=== PATIENT | male | born 1990 ===

== ENCOUNTER 2017-11-27 11:06 | Emergency (ER) | payer MEDICAID, OTHER ==
[2017-11-27 11:06] VITALS: BMI 39.1
[2017-11-27 11:33] VITALS: BP 104/68; PULSE 84; RESP 16; TEMP 97.5; O2SAT 96
--- NOTE | 2017-11-27 11:49 | ED PDOC ---
Arrival/HPI - General Chief Complaint: GI Problem Time Seen by Provider: 11/27/17 11:17 - History of Present Illness Narrative History of Present Illness (Text): 26 y/o M c PMHx seizure disorder x 2 years and not currently on medication, migraine headaches p/w L hand finger numbness after presumed seizure overnight. Patient awoke with nausea, vomiting once, NBNB, and has headache, which he states is typical of his [id number]. He notes he woke up in his urine. Denies fever, chills, chest pain, dyspnea, abd pain, diarrhea, dysuria. Past Medical History - Infectious Disease Hx of Infectious Diseases: None - Tetanus Immunization Tetanus Immunization: Unknown - Past Medical History Past Medical History: No Previous - Cardiac Hx Cardiac Disorders: No Hx Hypertension: No - Pulmonary Hx Respiratory Disorders: No Hx Tuberculosis: No - Neurological Hx Neurological Disorder: Yes Hx Alzheimer's Disease: No HX Cerebrovascular Accident: No Hx Dementia: No Hx Dizziness: No Hx Meningitis: No Hx Migraine: No Hx Multiple Sclerosis: No Hx Paralysis: No Hx Parkinson's Disease: No Hx Seizures: Yes Hx Syncope: No Hx Transient Ischemic Attacks (TIA): No Hx Vertigo: No - HEENT Hx HEENT Disorder: No - Renal Hx Renal Disorder: No - Endocrine/Metabolic Hx Endocrine Disorders: No - Hematological/Oncological Hx Blood Disorders: No Hx Cancer: No - Integumentary Hx Dermatological Disorder: No - Musculoskeletal/Rheumatological Hx Musculoskeletal Disorders: No - Gastrointestinal Hx Gastrointestinal Disorders: No - Genitourinary/Gynecological Hx Genitourinary Disorders: No Hx Sexually Transmitted Diseases: No - Psychiatric Hx Psychophysiologic Disorder: No Hx Depression: Yes Hx Substance Use: Yes - Past Surgical History Past Surgical History: No Previous - Anesthesia Hx Anesthesia: No Hx Anesthesia Reactions: No Hx Malignant Hyperthermia: No - Suicidal Assessment Feels Threatened In Home Enviroment: No Family/Social History Family/Social History: No Known Family HX Smoking Status: Never Smoked Hx Alcohol Use: No Hx Substance Use: Yes Substance used: CANNABIS Hx Substance Use Treatment: No Allergies/Home Meds Allergies/Adverse Reactions: Allergies No Known Allergies Allergy (Verified 12/18/16 10:56) Review of Systems - Physician Review All systems were reviewed & negative as marked: Yes - Review of Systems Constitutional: absent: Fevers Cardiovascular: absent: Chest Pain Physical Exam - Physical Exam Narrative Physical Exam (Text): Gen: NAD Head: NC/AT Eyes: PERRL, EOMI ENT: MMM. L sided tongue bite, no active bleeding Neck: Supple, no midline tenderness. Chest: No tenderness CV: Regular rate Resp: CTA b/l Abd: Soft, NT, ND Skin: No rash Extremities: No swelling. Neuro: Alert, CN II to XII intact. Motor mild weakness of ulnar distribution. Unable to fully extend 2nd and 3rd digit at MCP. Sensation to light touch mildly decreased subjectively in distal finger tips of 2nd through 5th digits. Vital Signs Temp Pulse Resp BP Pulse Ox 11/27/17 11:22 97.5 F L 84 16 104/68 96 Medical Decision Making ED Course and Treatment: Plan: Neurological findings consistent with seizure and also with migraine headaches. Offer seizure medication, f/u neurology. EKG shows NSR at [address]/T wave changes. Interpreted by me. Report Date : 11/27/2017 13:59:09 PROCEDURE: CT HEAD WITHOUT CONTRAST. Dictator : Olman Boogie MD FINDINGS: HEMORRHAGE: No intracranial hemorrhage. BRAIN: No mass effect or edema. No atrophy or chronic microvascular ischemic changes. VENTRICLES: Unremarkable. No hydrocephalus. CALVARIUM: Unremarkable. PARANASAL SINUSES: Unremarkable as visualized. No significant inflammatory changes. MASTOID AIR CELLS: Unremarkable as visualized. No inflammatory changes. OTHER FINDINGS: None. IMPRESSION: Negative study Report Date : 11/27/2017 14:24:14 PROCEDURE: Chest xray Dictator : Wayne Treviño MD IMPRESSION: No active disease. 11/27/17 14:42 Patient was in ED for over 3 hours. Hand numbness/weakness improved. Will discharge home on Depakote, which patient states he was on previously 500mg BID. Instructed to f/u with neurology, return to ED for any different headache, weakness, pain, dyspnea, or any other problem. - Lab Interpretations Lab Results: 11/27/17 12:50 11/27/17 12:50 Lab Results 11/27/17 12:50: Sodium 141, Potassium 4.8, Chloride 104, Carbon Dioxide 26, Anion Gap 16, BUN 12, Creatinine 0.8, Est GFR ( Amer) > 60, Est GFR (Non- Af Amer) > 60, Random Glucose 106, Calcium 10.4, Total Bilirubin 0.3, AST 25, ALT 32, Alkaline Phosphatase 92, Total Protein 7.8, Albumin 4.6, Globulin 3.2, Albumin/Globulin Ratio 1.4 11/27/17 12:50: WBC 13.9 H D, RBC 5.11, Hgb 15.8, Hct 44.3, MCV 86.7, MCH 30.9, MCHC 35.7, RDW 12.3, Plt Count 292, MPV 10.8, Gran % 88.4 H, Lymph % (Auto) 8.7 L, [place] % (Auto) 2.5, Eos % (Auto) 0.2 L, Baso % (Auto) 0.2, Gran # 12.25 H, Lymph # 1.2, [place] # 0.4, Eos # 0.0, Baso # 0.03 - RAD Interpretation Radiology Orders: 11/27/17 12:17 HEAD W/O CONTRAST [CT] Stat CHEST PORTABLE [RAD] Stat - Medication Orders Current Medication Orders: Discontinued Medications Acetaminophen (Tylenol 325mg Tab) 975 mg PO STAT STA Stop: 11/27/17 12:19 Last Admin: 11/27/17 12:53 Dose: 975 mg MAR Pain/Vitals Document 11/27/17 12:53 HI (Rec: 11/27/17 12:53 [facility] Pain Reassessment Is This A Pain ReAssessment? No Diphenhydramine HCl (Benadryl) 25 mg IVP STAT STA Stop: 11/27/17 12:19 Last Admin: 11/27/17 12:52 Dose: 25 mg IVP Administration Document 11/27/17 12:52 HI (Rec: 11/27/17 12:52 [facility] Charges for Administration # of IVP Administrations 1 Sodium Chloride (Sodium Chloride 0.9%) 1,000 mls @ 999 mls/hr IV .Q1H1M STA Stop: 11/27/17 13:18 Last Admin: 11/27/17 12:51 Dose: 999 mls/hr eMAR Start Stop Document 11/27/17 12:51 HI (Rec: 11/27/17 12:52 [facility]) Intravenous Solution Start Date 11/27/17 Start Time 12:51 Ketorolac Tromethamine (Toradol) 30 mg IVP STAT STA Stop: 11/27/17 12:19 Last Admin: 11/27/17 12:52 Dose: 30 mg MAR Pain Assessment Document 11/27/17 12:52 HI (Rec: 11/27/17 12:53 [email or web address] Pain Reassessment Is this a pain reassessment? No IVP Administration Document 11/27/17 12:52 HI (Rec: 11/27/17 12:53 [email or web address] Charges for Administration # of IVP Administrations 1 Metoclopramide HCl (Reglan) 10 mg IVP STAT STA Stop: 11/27/17 12:19 Last Admin: 11/27/17 12:52 Dose: 10 mg IVP Administration Document 11/27/17 12:52 HI (Rec: 11/27/17 12:52 [facility] Charges for Administration # of IVP Administrations 1 Disposition/Present on Arrival - Present on Arrival Any Indicators Present on Arrival: No History of DVT/PE: No History of Uncontrolled Diabetes: No Urinary Catheter: No History of Decub. Ulcer: No History Surgical Site Infection Following: None - Disposition Have Diagnosis and Disposition been Completed?: Yes Diagnosis: Seizure, Headache Disposition: HOME/ ROUTINE Disposition Time: 14:29 Patient Plan: Discharge Condition: STABLE Discharge Instructions (ExitCare): Epilepsy (ED) Prescriptions: Divalproex [Depakote ER] 250 mg PO BID #14 ter Referrals: Kolton Peres MD [Staff Provider] - Follow up with primary Forms: [employer] (French)
[2017-11-27] MEDS ORDERED: DiphenhydrAMINE 50 mg/ml Inj IVP STA (12:18)
[2017-11-27] MEDS ORDERED: Sodium Chloride 0.9% 1,000 ML IV STA (12:18)
[2017-11-27 13:05] LABS: BASO # 0.03 K/mm3 (0.0-2.0); BASO % 0.2 % (0.0-3.0); EOS % 0.2 % (1.5-5.0); GRAN # 12.25 (1.4-6.5); GRAN % 88.4 % (50.0-68.0); HEMOGLOBIN 15.8 g/dL (14.0-18.0); LYMPH # 1.2 (1.2-3.4); LYMPH % 8.7 % (22.0-35.0); MEAN CELL VOLUME 86.7 fl (80.0-105.0); MEAN CORPUSCULAR HEMOGLOBIN 30.9 pg (25.0-35.0); MEAN CORPUSCULAR HGB CONC 35.7 g/dl (31.0-37.0); MEAN PLATELET VOLUME 10.8 fl (7.0-11.0); MONO # 0.4 (0.1-0.6); MONO % 2.5 % (1.0-6.0); RBC 5.11 10^6/uL (3.5-6.1); RED CELL DISTRIBUTION WIDTH 12.3 % (11.5-14.5); WHITE BLOOD COUNT 13.9 10^3/ul (4.5-11.0)
[2017-11-27 13:14] LABS: ALB/GLOB RATIO 1.4 (1.1-1.8); ALBUMIN 4.6 g/dL (3.0-4.8); ALT/SGPT 32 U/L (7-56); AST/SGOT 25 U/L (17-59); BLOOD UREA NITROGEN 12 mg/dL (7-21); CALCIUM 10.4 mg/dL (8.4-10.5); GFR AFRICAN-AMERICAN > 60; GFR NON-AFRICAN AMERICAN > 60
--- NOTE | 2017-11-27 14:00 | CT ---
PROCEDURE: CT HEAD WITHOUT CONTRAST. HISTORY: headache, hand weakness/numbness COMPARISON: 06/17/2015 TECHNIQUE: Axial computed tomography images were obtained through the head/brain without intravenous contrast. Radiation dose: Total exam DLP = 873 mGy-cm. This CT exam was performed using one or more of the following dose reduction techniques: Automated exposure control, adjustment of the mA and/or kV according to patient size, and/or use of iterative reconstruction technique. FINDINGS: HEMORRHAGE: No intracranial hemorrhage. BRAIN: No mass effect or edema. No atrophy or chronic microvascular ischemic changes. VENTRICLES: Unremarkable. No hydrocephalus. CALVARIUM: Unremarkable. PARANASAL SINUSES: Unremarkable as visualized. No significant inflammatory changes. MASTOID AIR CELLS: Unremarkable as visualized. No inflammatory changes. OTHER FINDINGS: None. IMPRESSION: Negative study
--- NOTE | 2017-11-27 14:26 | RAD ---
HISTORY: Hand numbness and weakness. COMPARISON: No prior. FINDINGS: LUNGS: No active pulmonary disease. PLEURA: No significant pleural effusion identified, no pneumothorax apparent. CARDIOVASCULAR: No radiographic findings to suggest acute or significant cardiovascular disease. OSSEOUS STRUCTURES: No significant abnormalities. VISUALIZED UPPER ABDOMEN: Normal. OTHER FINDINGS: None. IMPRESSION: No active disease.
[2017-11-27] MEDS ORDERED: Divalproex 500 mg DR(BID formulation) PO STA (14:42)
--- NOTE | 2017-11-28 11:18 | CARD ---
APPROVED REPORT EKG Measurement Heart [id number] ND 130P33 [id number] <Conclusion> Normal sinus rhythm Minimal voltage criteria for LVH, may be normal variant No change
== END 2017-11-27 14:52 | disposition home or self-care (01) ==
LOC: ED 11:06
DX: G40.909 Epilepsy, unspecified, not intractable, without status epilepticus (principal); R51 Headache
CPT/HCPCS: 70450; 71045; 80053; 85025; 93005; 96374; 96375; 99283; J1200; J1885; J2765; J7040

== ENCOUNTER 2018-02-18 06:41 | Observation (INO) | payer BC, MEDICAID ==
[2018-02-18 06:45] VITALS: BMI 39.2
[2018-02-18] MEDS ORDERED: Sodium Chloride 0.9% 500 ML IV STA (07:08)
[2018-02-18] MEDS ORDERED: levETIRAcetam 1,000 MG in Sodium Chloride 0.9% 100 ML IV ONE (07:10)
--- NOTE | 2018-02-18 07:38 | ED PDOC ---
Arrival/HPI - General Historian: Family, EMS EM Caveat: Acuity of Condition, Altered Mental Status - History of Present Illness Time/Duration: 1 hour Symptom Onset: Sudden Symptom Course: Intermittent Context: Home <Maris López - Last Filed: 02/18/18 13:11> <Sammie Cui - Last Filed: 02/20/18 21:19> - General Chief Complaint: Seizure Time Seen by Provider: 02/18/18 07:07 - History of Present Illness Narrative History of Present Illness (Text): 02/18/18 07:29 27 yo M with PMH of epilepsy for 2 years presents by EMS called by his brother for witnessed seizure. Patient was sleeping at home when he started to have whole body shaking witnessed by his brother. Per the brother, shaking lasted 40 seconds, then resolved spontaneously. Patient was tired and confused, breathing heavy for 30 minutes, then he started to shake again, at which point the brother called EMS. He urinated on himself during the second episode. Shaking lasted approximately 1 minute, then resolved spontaneously. He was tired and confused again for a few minutes, then woke up and was behaving normally. By the time EMS arrived, he became agitated, confused, and combative again. Patient has not taken his antiseizure medications for 2 months, due to lack of insurance. Upon arrival in the ER, patient was very agitated, confused, and combative. He was restrained for his safety, and for the safety of the ED personnel, IV access was obtained, and he was given IV ativan. Currently, patient is awake and alert, speaking normally, oriented to person, place, and time. He is confused about prior events. He is complaining of a headache. He denies any chest pain, fever, chills. He and family deny any recent illness, substance abuse, alcohol use, or otherwise abnormal behavior. (Maris López) Past Medical History - Provider Review Nursing Documentation Reviewed: Yes - Travel History Have you recently traveled outside [place] w/in the past 3 mons?: No - Infectious Disease Hx of Infectious Diseases: None - Tetanus Immunization Tetanus Immunization: Unknown - Cardiac Hx Cardiac Disorders: No Hx Hypertension: No - Pulmonary Hx Respiratory Disorders: No Hx Tuberculosis: No - Neurological Hx Neurological Disorder: Yes Hx Alzheimer's Disease: No HX Cerebrovascular Accident: No Hx Dementia: No Hx Dizziness: No Hx Meningitis: No Hx Migraine: No Hx Multiple Sclerosis: No Hx Paralysis: No Hx Parkinson's Disease: No Hx Seizures: Yes Hx Syncope: No Hx Transient Ischemic Attacks (TIA): No Hx Vertigo: No - HEENT Hx HEENT Disorder: No - Renal Hx Renal Disorder: No - Endocrine/Metabolic Hx Endocrine Disorders: No - Hematological/Oncological Hx Blood Disorders: No Hx Cancer: No - Integumentary Hx Dermatological Disorder: No - Musculoskeletal/Rheumatological Hx Musculoskeletal Disorders: No - Gastrointestinal Hx Gastrointestinal Disorders: No - Genitourinary/Gynecological Hx Genitourinary Disorders: No Hx Sexually Transmitted Diseases: No - Psychiatric Hx Psychophysiologic Disorder: No Hx Depression: Yes Hx Substance Use: No - Past Surgical History Past Surgical History: No Previous - Anesthesia Hx Anesthesia: No Hx Anesthesia Reactions: No Hx Malignant Hyperthermia: No - Suicidal Assessment Feels Threatened In Home Enviroment: No <Maris López - Last Filed: 02/18/18 13:11> <Sammie Cui - Last Filed: 02/20/18 21:19> - Patient History Narrative Patient History: Siezures (Maris López) Family/Social History - Physician Review Nursing Documentation Reviewed: Yes Family/Social History: CAD/MA Smoking Status: Former Smoker Hx Alcohol Use: Yes Frequency of alcohol use: Socially Hx Substance Use: Yes Substance used: CANNABIS Route: Smoking/Inhalation Hx Substance Use Treatment: No <Maris López - Last Filed: 02/18/18 13:11> Allergies/Home Meds <Maris López - Last Filed: 02/18/18 13:11> <Sammie Cui - Last Filed: 02/20/18 21:19> Allergies/Adverse Reactions: Allergies No Known Allergies Allergy (Verified 02/18/18 20:07) Review of Systems - Review of Systems Systems not reviewed;Unavailable: Altered Mental Status <Maris López - Last Filed: 02/18/18 13:11> Physical Exam - Physical Exam Physical Exam Limitations: Altered Mental Status Vital Signs Reviewed: Yes Temperature: Afebrile Blood Pressure: Normal Pulse: Tachycardic Respiratory Rate: Normal Appearance: Positive for: Other (post-ictal) Pain Distress: None Mental Status: Positive for: other (Post-ictal) - Systems Exam Head: Present: Atraumatic, Normocephalic Pupils: Present: PERRL Conjunctiva: Present: Normal Mouth: Present: Moist Mucous Membranes Neck: Present: Normal Range of Motion Respiratory/Chest: Present: Clear to Auscultation. No: Respiratory Distress, Accessory Muscle Use Cardiovascular: Present: Regular Rate and Rhythm, Normal S1, S2 Abdomen: Present: Normal Bowel Sounds. No: Tenderness, Distention Upper Extremity: Present: Normal Inspection Lower Extremity: Present: Normal Inspection Neurological: Present: Other (post-ictal) Skin: Present: Warm, Dry. No: Rashes Psychiatric: Present: Other (post-ictal) <Maris López - Last Filed: 02/18/18 13:11> Vital Signs Temp Pulse Resp BP Pulse Ox 02/18/18 18:21 98.6 F 113 H 20 132/58 L 98 02/18/18 18:20 104 H 18 132/58 L 98 02/18/18 14:28 98.8 F 109 H 18 136/76 98 02/18/18 07:35 97.8 F 102 H 17 122/79 98 02/18/18 07:08 135 H 20 133/79 93 L Medical Decision Making Reassessment Condition: Re-examined, Improving,but remains with symptoms <aMris López - Last Filed: 02/18/18 13:11> <Sammie Cui - Last Filed: 02/20/18 21:19> ED Course and Treatment: 02/18/18 07:42 Patient received Ativan 2mg IVP for seizure and agitation Approximately 15 minutes after ativan administration, patient is now awake and alert, slightly confused, though upon looking around, is able to orient himself x3. VSS. Ordered CBC, CMP, UA, UDS, serum alcohol, valproic acid level, EKG, and head CT to rule out secondary causes of seizure. Ordered IVF and loading dose of keppra. 02/18/18 11:39 Reevaluated. Patient complaining of headache, and generalized weakness. Feels lightheaded, dizzy, and weak even standing to urinate. No further seizure-like activity. History concerning for status epilepticus that was terminated with treatment upon arrival to the ER. Marked leukocytosis noted on CBC. Will discuss case with PMD Dr. Guillaume 02/18/18 13:[address] Guillaume who accepts admission to his service. Will admit patient to remote telemetry for status epilepticus, gait instability, and leukocytosis (Amine,Mukarram) - Lab Interpretations Microbiology Results: Microbiology Results 02/18/18 08:40 Blood-Venous Blood Culture - Preliminary NO GROWTH AFTER 48 HOURS 02/18/18 08:00 Blood-Venous Blood Culture - Preliminary NO GROWTH AFTER 48 HOURS 02/18/18 08:40 Urine,Clean Catch Urine Culture - Final No Growth (<1,000 CFU/ML) Lab Results: 02/18/18 08:00 02/18/18 08:00 Lab Results 02/18/18 08:40: Urine Opiates Screen Negative, Urine Methadone Screen Negative, Ur Barbiturates Screen Negative, Ur Phencyclidine Scrn Negative, Ur Amphetamines Screen Negative, U Benzodiazepines Scrn Positive, U Oth Cocaine Metabols Negative, U Cannabinoids Screen Positive H 02/18/18 08:40: Urine Color Yellow, Urine Appearance Clear, Urine pH 6.0, Ur Specific [place] 1.025, Urine Protein Trace H, Urine Glucose (UA) Negative, Urine Ketones Negative, Urine Blood Trace-lysed H, Urine Nitrate Negative, Urine Bilirubin Negative, Urine Urobilinogen 0.2, Ur Leukocyte Esterase Negative , Urine RBC 1 - 3, Urine WBC 0 - 2, Ur Epithelial Cells None, Amorphous Sediment Few, Urine Bacteria Large, Urine Other Uyeast 02/18/18 08:00: Valproic Acid < 10 L 02/18/18 08:00: Alcohol, Quantitative < 10 02/18/18 08:00: Sodium 141, Potassium 4.3, Chloride 105, Carbon Dioxide 20 L, Anion Gap 20, BUN 14, Creatinine 1.0, Est GFR ( Amer) > 60, Est GFR (Non- Af Amer) > 60, Random Glucose 106, Calcium 10.0, Total Bilirubin 0.3, AST 36, ALT 40, Alkaline Phosphatase 89, Total Protein 8.1, Albumin 4.8, Globulin 3.3, Albumin/Globulin Ratio 1.4 02/18/18 08:00: WBC 18.6 H D, RBC 5.20, Hgb 15.6, Hct 44.2, MCV 85.0, MCH 30.0, MCHC 35.3, RDW 12.8, Plt Count 300, MPV 10.8, Gran % 90.9 H, Lymph % (Auto) 5.0 L, [place] % (Auto) 3.5, Eos % (Auto) 0.4 L, Baso % (Auto) 0.2, Gran # 16.89 H, Lymph # (Auto) 0.9 L, [place] # (Auto) 0.7 H, Eos # (Auto) 0.1, Baso # (Auto) 0.04 , Neutrophils % (Manual) 90 H, Lymphocytes % (Manual) 5 L, Monocytes % (Manual) 4, Eosinophils % (Manual) 1 - RAD Interpretation Radiology Orders: 02/18/18 07:08 HEAD W/O CONTRAST [CT] Stat - Medication Orders Current Medication Orders: Discontinued Medications Acetaminophen (Tylenol 325mg Tab) 650 mg PO STAT STA Stop: 02/18/18 08:27 Last Admin: 02/18/18 08:41 Dose: 650 mg MAR Pain/Vitals Document 02/18/18 08:41 SRE (Rec: 02/18/18 08:41 SRE [id number]) Pain Reassessment Is This A Pain ReAssessment? Yes Sleep Is patient sleeping during reassessment? No Presence of Pain Presence of Pain Yes Pain Scale Used Pain Scale Used Numeric Location Pain Location Body Control Electrician Description Intermittent Al Hydrox/Mg Hydrox/Simethicone (Maalox Plus 30 Ml) 30 ml PO ONCE ONE Stop: 02/19/18 00:55 Last Admin: 02/19/18 00:59 Dose: 30 ml Enoxaparin Sodium (Lovenox) 40 mg SC DAILY NIYAH PRN Reason: Protocol Last Admin: 02/19/18 09:10 Dose: 40 mg Subcutaneous Administrations Document 02/19/18 09:10 LO (Rec: 02/19/18 09:11 LO [id number]) Charges for Administration # of Subcutaneous Administrations 1 Sodium Chloride (Sodium Chloride 0.9%) 500 mls @ 1,000 mls/hr IV .Q30M STA Stop: 02/18/18 07:37 Last Admin: 02/18/18 08:26 Dose: 1,000 mls/hr eMAR Start Stop Document 02/18/18 08:26 SRE (Rec: 02/18/18 08:27 SRE [id number]) Intravenous Solution Start Date 02/18/18 Start Time 08:26 End Date 02/18/18 End time 09:05 Total Infusion Time 39 Levetiracetam 1,000 mg/ Sodium (Chloride) 110 mls @ 440 mls/hr IV ONCE ONE Stop: 02/18/18 07:24 Last Admin: 02/18/18 08:40 Dose: 440 mls/hr eMAR Start Stop Document 02/18/18 08:40 SRE (Rec: 02/18/18 08:41 SRE [id number]) Intravenous Solution Start Date 02/18/18 Start Time 08:41 End Date 02/18/18 End time 09:10 Total Infusion Time 29 Sodium Chloride (Sodium Chloride 0.9%) 2,000 mls @ 100 mls/hr IV .Q20H [facility] [place] Last Admin: 02/18/18 13:58 Dose: 100 mls/hr eMAR Start Stop Document 02/18/18 13:58 SRE (Rec: 02/18/18 13:59 SRE [id number]) Intravenous Solution Start Date 02/18/18 Start Time 13:58 Ibuprofen (Motrin Tab) 600 mg PO STAT STA Stop: 02/18/18 11:44 Last Admin: 02/18/18 11:56 Dose: 600 mg MAR Pain/Vitals Document 02/18/18 11:56 SRE (Rec: 02/18/18 11:56 SRE [id number]) Pain Reassessment Is This A Pain ReAssessment? Yes Sleep Is patient sleeping during reassessment? No Presence of Pain Presence of Pain Yes Pain Scale Used Pain Scale Used Numeric Location Pain Location Body Control Electrician Lorazepam (Ativan) 2 mg IVP ONCE ONE PRN Reason: Protocol Stop: 02/18/18 07:01 Last Admin: 02/18/18 06:52 Dose: 2 mg IVP Administration Document 02/18/18 06:52 CNR (Rec: 02/18/18 07:16 CNR [id number]) Charges for Administration # of IVP Administrations 1 Pneumococcal Polyvalent Vaccine (Pneumovax 23 Vaccine) 0.5 ml IM .ONCE ONE Stop: 02/18/18 22:19 Valproate Sodium (Depakene Cap) 250 mg PO DAILY [facility] [place] Last Admin: 02/19/18 09:10 Dose: 250 mg Valproate Sodium (Depakene Cap) 250 mg PO BID [facility] Last Admin: 02/19/18 17:28 Dose: 250 mg - PA / PARENT COACH / Resident Statement /DO has reviewed & agrees with the documentation as recorded. <Sammie Cui - Last Filed: 02/20/18 21:19> Disposition/Present on Arrival - Present on Arrival Any Indicators Present on Arrival: No History of DVT/PE: No History of Uncontrolled Diabetes: No Urinary Catheter: No History of Decub. Ulcer: No History Surgical Site Infection Following: None - Disposition Have Diagnosis and Disposition been Completed?: Yes Disposition Time: 12:22 Patient Plan: Admission, Telemetry <Maris López - Last Filed: 02/18/18 13:11> <Samime Cui - Last Filed: 02/20/18 21:19> - Disposition Diagnosis: Status epilepticus, Leukocytosis, Gait instability Disposition: HOSPITALIZED Condition: SERIOUS
--- NOTE | 2018-02-18 08:04 | CT ---
PROCEDURE: CT HEAD WITHOUT CONTRAST. HISTORY: seizure COMPARISON: 11/27/2017 TECHNIQUE: Axial computed tomography images were obtained through the head/brain without intravenous contrast. Radiation dose: Total exam DLP = 951 mGy-cm. This CT exam was performed using one or more of the following dose reduction techniques: Automated exposure control, adjustment of the mA and/or kV according to patient size, and/or use of iterative reconstruction technique. FINDINGS: HEMORRHAGE: No intracranial hemorrhage. BRAIN: No mass effect or edema. No atrophy or chronic microvascular ischemic changes. VENTRICLES: Unremarkable. No hydrocephalus. CALVARIUM: Unremarkable. PARANASAL SINUSES: Unremarkable as visualized. No significant inflammatory changes. MASTOID AIR CELLS: Unremarkable as visualized. No inflammatory changes. OTHER FINDINGS: None. IMPRESSION: No acute findings
[2018-02-18 08:38] LABS: BASO # 0.04 K/mm3 (0.0-2.0); BASO % 0.2 % (0.0-3.0); EOS # 0.1 (0.0-0.7); EOS % 0.4 % (1.5-5.0); GRAN # 16.89 (1.4-6.5); GRAN % 90.9 % (50.0-68.0); HEMOGLOBIN 15.6 g/dL (14.0-18.0); LYMPH # 0.9 (1.2-3.4); MEAN CORPUSCULAR HGB CONC 35.3 g/dl (31.0-37.0); MEAN PLATELET VOLUME 10.8 fl (7.0-11.0); MONO # 0.7 (0.1-0.6); MONO % 3.5 % (1.0-6.0); PLATELET COUNT 300 10^3/uL (120.0-450.0); RED CELL DISTRIBUTION WIDTH 12.8 % (11.5-14.5); WHITE BLOOD COUNT 18.6 10^3/ul (4.5-11.0)
[2018-02-18 08:43] LABS: ALB/GLOB RATIO 1.4 (1.1-1.8); ALBUMIN 4.8 g/dL (3.0-4.8); ALT/SGPT 40 U/L (7-56); AST/SGOT 36 U/L (17-59); BLOOD UREA NITROGEN 14 mg/dL (7-21); GFR AFRICAN-AMERICAN > 60; GFR NON-AFRICAN AMERICAN > 60
[2018-02-18 09:09] LABS: EOSINOPHIL 1 % (0.0-3.0); LYMPHOCYTE 5 % (22.0-35.0); MONOCYTE 4 % (1.0-6.0); NEUTROPHIL 90 % (50.0-70.0)
[2018-02-18 09:21] LABS: BARBITURATES, UR NEGATIVE (NEGATIVE); BENZODIAZEPINES, UR POSITIVE (NEGATIVE); OPIATES, UR NEGATIVE (NEGATIVE); PHENCYCLIDINE, UR NEGATIVE (NEGATIVE)
[2018-02-18 09:52] LABS: URINE BILIRUBIN NEGATIVE (NEGATIVE); URINE BLOOD TRACE-LYSED (NEGATIVE); URINE GLUCOSE (UA) NEGATIVE (NEGATIVE); URINE LEUKOCYTE ESTERASE NEGATIVE Leu/uL (NEGATIVE); URINE PROTEIN TRACE mg/dL (<30 mg/dL); URINE UROBILINOGEN 0.2 E.U./dL (<1 E.U./dL)
[2018-02-18 09:54] LABS: URINE APPEARANCE CLEAR (CLEAR); URINE COLOR YELLOW (YELLOW)
[2018-02-18 10:00] LABS: URINE AMORPHOUS SEDIMENT FEW; URINE BACTERIA LARGE (NEG); URINE WBC 0 - 2 /hpf (0-6)
--- NOTE | 2018-02-18 10:40 | CARD ---
APPROVED REPORT EKG Measurement Heart [id number] NC 146P68 [id number] <Conclusion> Sinus tachycardia LVH by voltage NSSTW changes, new
[2018-02-18] MEDS ORDERED: Sodium Chloride 0.9% 2,000 ML IV SCH (12:45)
[2018-02-18 18:22] VITALS: RESP 20
[2018-02-18] MEDS ORDERED: Pneumococcal 23-Valent Vaccine IM ONE (22:18)
[2018-02-19] MEDS ORDERED: Alum-Mag Hydrox-Simethicone Susp (30 mL) PO ONE (00:54)
--- NOTE | 2018-02-19 03:09 | CON ---
DATE: HISTORY OF PRESENT ILLNESS: This is a 27-year-old male with past medical history of seizures. The patient came to the hospital with witnessed seizure at home and seizure lasted for 40 seconds and resolved spontaneously. Then patient had again another seizure, then brought him to . The patient was agitated, confused and combative. The patient has not been taking his seizure medicine for last two months and the patient was given Ativan and now transferred to the floor. Spoke to the patient and his mother in detail and also spoke to Dr. Guillaume. PAST MEDICAL HISTORY: As above. SOCIAL HISTORY: Does not smoke, does not drink. REVIEW OF SYSTEMS: 10-point review of systems was negative. PHYSICAL EXAMINATION: VITAL SIGNS: Blood pressure 133/79. HEENT: Normocephalic, atraumatic. NECK: Supple. NEUROLOGIC: Alert, awake, oriented x3. No aphasia. Cranial nerves II to XII are tested. Pupils reactive. EOM intact. Visual field full. No facial asymmetry. Tongue midline. Motor examination normal. Deep tendon reflexes 1+. Both plantars are downgoing. Sensory appears intact. Cerebellar, gait deferred. IMPRESSION: Seizure, had two episodes of seizure. The patient not taking the medication, noncompliant with Depakote and the level of Depakote was below normal, and started on small dose of Depakote 250 mg. Continue Keppra. We will follow up. Alex Hernandez MD
[2018-02-19 09:22] LABS: BASO # 0.07 K/mm3 (0.0-2.0); BASO % 0.6 % (0.0-3.0); EOS # 0.1 (0.0-0.7); EOS % 1.1 % (1.5-5.0); GRAN # 7.33 (1.4-6.5); GRAN % 67.2 % (50.0-68.0); LYMPH # 2.7 (1.2-3.4); LYMPH % 24.5 % (22.0-35.0); MEAN CELL VOLUME 84.6 fl (80.0-105.0); MEAN CORPUSCULAR HEMOGLOBIN 29.5 pg (25.0-35.0); MEAN CORPUSCULAR HGB CONC 34.8 g/dl (31.0-37.0); MEAN PLATELET VOLUME 10.2 fl (7.0-11.0); MONO # 0.7 (0.1-0.6); MONO % 6.6 % (1.0-6.0); RBC 4.75 10^6/uL (3.5-6.1); WHITE BLOOD COUNT 10.9 10^3/ul (4.5-11.0)
[2018-02-19 09:34] LABS: BLOOD UREA NITROGEN 7 mg/dL (7-21); CALCIUM 9.9 mg/dL (8.4-10.5); GFR AFRICAN-AMERICAN > 60; GFR NON-AFRICAN AMERICAN > 60
[2018-02-19] MEDS ORDERED: Enoxaparin 40 mg Syringe SC SCH (10:00)
--- NOTE | 2018-02-19 10:59 | HP ---
DATE OF EXAM: 02/18/2018 MAIN COMPLAINT: Seizure. HISTORY OF PRESENT ILLNESS: A 27-year-old male with past medical history of seizure disorder. Patient has been stopped his medication. He tried in the past Keppra. According to him, it makes him more of agitated and was admitted to Psych floor for that and was seen by Dr. Erica Francisco. He also has been on Depakote, which make him tired. Patient at this time came in with seizures. He had seizure night before coming to the hospital and it happened again multiple seizures, 2-3 seizures. Patient came into the hospital and was given Ativan and was given Keppra 1 g. Patient was admitted to the hospital for observation and Neuro consultations. PAST MEDICAL HISTORY: As above plus morbid obesity. SOCIAL HISTORY: No smoking, no drinking. Does not take any drugs on the street. REVIEW OF SYSTEMS: Negative. ALLERGIES: ACCORDING TO HIM NO KNOWN ALLERGIES. PHYSICAL EXAMINATION: VITAL SIGNS: Temperature is 98.8, heart rate 109, blood pressure 136/76, respirations 18, saturation 98% on room air. HEAD AND NECK: Normal. No JVD. No thyromegaly. CHEST: Clear, good air entry. CARDIAC: First sound and second sound normal. ABDOMEN: Obese, nontender. EXTREMITIES: No edema. NEUROLOGICAL: Patient has normal neurologic exam. LABORATORY DATA: On admission is, white count 18.6, hemoglobin 15.6, hematocrit 44.2, platelets 300. Patient had urinalysis which was normal. He had chemistry shows sodium 141, potassium 4.3, chloride 105, bicarb 20, BUN 14, creatinine 1. Liver function test is normal. Total protein, albumin, globulin and albumin-globulin ratio was normal. Patient also had toxicology screen, which was positive for cannabinoids. Also, the patient has CT of the head which was negative and also had an EKG which reported sinus rhythm with nonspecific ST changes. He does have a sinus tachycardia, has LVH by voltage criteria. His QTc is 446. IMPRESSION AND PLAN: 1. A 27-year-old male with history of seizure, noncompliant. Patient had recurrent seizures. We will admit the patient on IV Keppra. We will get Neuro consultation, Dr. Hernandez. We will consider patient marijuana, it does reduce the risk of recurrent seizures; however, at this time we need to get the seizure controlled by medication first. 2. Patient has reaction to Keppra. We will get Dr. Erica Francisco to see him, psychiatrist and to see her recommendations. He also had a problem with Depakote and patient may need to be evaluated psychiatric syed because he has tendency not to comply with his medications due to side effects. 3. He is morbid obese. Patient need to go for sleep study and weight loss program. We will continue current therapy. Follow up clinically. Barrington Guillaume MD
--- NOTE | 2018-02-19 11:06 | CP.PCM.PCO ---
Physician Communication Note - Physician Communication Note Physician Communication Note: c/w depakote for seizures.
--- NOTE | 2018-02-19 13:40 | CON ---
DATE: HISTORY OF PRESENT ILLNESS: In short, the patient is 27-year-old male with reported history of seizure disorder. The patient has one previous psychiatric admission which took place here in [facility] in 10/2015. The patient had suicidal ideation, most likely it was related to the Keppra which was started recently, which was started 10 days prior of admission to the psychiatric inpatient unit. The patient was stabilized on Depakote, but apparently the patient was not compliant with the medications, also followup appointment. The patient had witnessed seizures and was admitted on the medical side this time. The patient is very familiar to this sql report writer from the previous admission to the psychiatric inpatient unit, 07/2015. This sql report writer had impression that the patient had suicidal ideation, which was related to the new start of Keppra and it was discontinued and the patient was stabilized on Depakote back then. Going back to the present evaluation, the patient presented to be alert. The patient remembered this sql report writer by name. The patient said that he was not compliant with the medications, had no obvious reason to discontinue medications. The patient denied any side effects. The patient has poor understanding why he needs to take medication, what are the consequences of the being without it. This sql report writer had prolonged conversation and educated the patient about the importance to be compliant with the medications as well as potential risk of seizures. The patient verbalized the understanding. The patient denied being depressed. Denied thoughts of harming himself or others. Denied intent or plan. Insight and judgment seems to be limited, but improving. The patient reported that he lives with the brother in [place]. The patient reported that he works. The patient denied hearing voices. Denied seeing things. Denied paranoid ideation. The patient's speech seems to be kind of fast. The patient reported that this is usually the way he talks. This sql report writer reviewed vital signs, temperature 98.2, pulse is 85, blood pressure 134/79, respirations 20, oxygen saturation 98. Medications reviewed. Lovenox, sodium chloride as well as Depakote. This sql report writer would suggest to increase the dose of Depakote. Labs reviewed. WBC cells were 18.6 at the time of admission, today is 10.9. Granulocytes are 7.33, which is high. Chloride is 108, which is high. Toxicology: Valproic acid less than 10. Cannabis positive. The patient said that he smokes at times. PAST PSYCHIATRIC HISTORY: As this sql report writer mentioned above, in 2014, the patient was admitted for 3-4 days into the psychiatric inpatient unit, but since then the patient was noncompliant with the medication as well as noncompliant with the followup appointment. MENTAL STATUS EXAMINATION: The patient was alert and oriented, remembered this sql report writer by name. Intermittent eye contact. Speech was overproductive, but not pressured. Thought process seems to be goal directed. Thought content, the patient denied visual, auditory or tactile hallucinations. Denied paranoid ideations. The patient does not appear to be paranoid. The patient adamantly denied thoughts of harming himself or others. Denied intent or plan. Insight and judgment seems to be limited in regards of compliance of the medication. Impulses are well controlled. IMPRESSION: As per history, the patient had side effects from the Keppra. At present moment, the patient denied being depressed. Denied feeling anxious. In regards of manic symptoms, the patient does not present to be manic, but speech was overproductive. At the same time, the patient said this is usually the way he talks. PLAN: This sql report writer would suggest do not resume Keppra because of side effects of suicidal ideation in the past. I would consider to increase the dose of Depakote and titrate accordingly to the therapeutic level. Neurology followup, Dr. Hernandez saw this patient. This sql report writer would suggest for the patient to follow up with the psychiatrist in the community. The patient denied any suicidal ideation. Denied thoughts of harming himself or others. Does not present to be psychotic and does not present to be manic. This sql report writer will sign off. Should you have any questions, give me a call back. Thank you very much for letting me participate in care of your patient. Erica Francisco MD
[2018-02-19 16:44] VITALS: BP 132/67; TEMP 98.6; O2SAT 96
[2018-02-19 18:54] VITALS: PULSE 69
== END 2018-02-19 19:11 | disposition home or self-care (01) ==
LOC: ED 06:41 → ERH 12:03 → 3RNO 18:35
PROVIDERS: ADMIT Internal Medicine; ATTEND Internal Medicine
DX: G40.901 Epilepsy, unspecified, not intractable, with status epilepticus (principal); R26.9 Unspecified abnormalities of gait and mobility; D72.829 Elevated white blood cell count, unspecified; E66.01 Morbid (severe) obesity due to excess calories; Z68.39 Body mass index [BMI] 39.0-39.9, adult; Z91.19 Patient's noncompliance with other medical treatment and regimen; Z91.14 Patient's other noncompliance with medication regimen; Z78.1 Physical restraint status
CPT/HCPCS: 36415; 70450; 80048; 80053; 80164; 81001; 85025; 87040; 87086; 93005; 96360; 96374; 99285; G0378; G0480; J1650; J1953; J2060; J7040

== ENCOUNTER 2018-07-17 02:51 | Emergency (ER) | payer BC, MEDICAID ==
[2018-07-17 03:09] VITALS: RESP 18; TEMP 98.2; BMI 34.4
[2018-07-17 03:56] LABS: VENOUS BLOOD GAS BASE EXCESS -4.5 mmol/L (0.0-2.0); VENOUS BLOOD GAS PO2 36 mm/Hg (30-55); VENOUS BLOOD PH 7.33 (7.32-7.43)
[2018-07-17 04:00] LABS: BASO # 0.03 K/mm3 (0.0-2.0); BASO % 0.4 % (0.0-3.0); EOS # 0.3 (0.0-0.7); EOS % 3.3 % (1.5-5.0); GRAN # 5.4 (1.4-6.5); GRAN % 63.2 % (50.0-68.0); HEMOGLOBIN 14.1 g/dL (14.0-18.0); LYMPH # 2.4 (1.2-3.4); LYMPH % 28.2 % (22.0-35.0); MEAN CORPUSCULAR HEMOGLOBIN 30.4 pg (25.0-35.0); MEAN CORPUSCULAR HGB CONC 35.3 g/dl (31.0-37.0); MEAN PLATELET VOLUME 10.5 fl (7.0-11.0); MONO # 0.4 (0.1-0.6); MONO % 4.9 % (1.0-6.0); RBC 4.64 10^6/uL (3.5-6.1); RED CELL DISTRIBUTION WIDTH 13.1 % (11.5-14.5); WHITE BLOOD COUNT 8.5 10^3/ul (4.5-11.0)
--- NOTE | 2018-07-17 04:01 | ED PDOC ---
Arrival/HPI - General Chief Complaint: Seizure Time Seen by Provider: 07/17/18 02:57 Historian: Patient, Family - History of Present Illness Narrative History of Present Illness (Text): 07/17/18 03:57 Dereck Ayala is a 27 year old male, whose past medical history includes seizure disorder, who presents to the emergency department brought in by EMS accompanied by family status post seizure. Brother states patient had 3 episodes of witnessed generalized tonic-clonic shaking prior to arrival. Patient reports urinary incontinence and minimal left shoulder discomfort. Patient states he has saw his neurologist 1 month ago and notes he has been compliant with his Topomax. Patient notes his last seizure was 2-3 months ago. Patient denies any suicidal ideation or homicidal ideation, notes he has been stressed due to unemployment recently. Patient denies any fevers, chills, chest pain, shortness of breath, abdominal pain, nausea, vomiting, diarrhea, back pain , neck pain, focal deficits, trauma/injury, recent sick contacts, recent travel , or any other complaint. PMD: Dr. Guillaume Neurologst: Dr. Peres Symptom Onset: Gradual Symptom Course: Unchanged Activities at Onset: Light Context: Home Past Medical History - Provider Review Nursing Documentation Reviewed: Yes - Travel History Have you recently traveled outside [place] w/in the past 3 mons?: No - Infectious Disease Hx of Infectious Diseases: None - Tetanus Immunization Tetanus Immunization: Unknown - Past Medical History Past Medical History: No Previous - Cardiac Hx Cardiac Disorders: No Hx Hypertension: No - Pulmonary Hx Respiratory Disorders: No Hx Tuberculosis: No - Neurological Hx Neurological Disorder: Yes Hx Alzheimer's Disease: No HX Cerebrovascular Accident: No Hx Dementia: No Hx Dizziness: No Hx Meningitis: No Hx Migraine: No Hx Parkinson's Disease: No Hx Seizures: Yes Hx Transient Ischemic Attacks (TIA): No - HEENT Hx HEENT Disorder: No - Renal Hx Renal Disorder: No - Endocrine/Metabolic Hx Endocrine Disorders: No - Hematological/Oncological Hx Blood Disorders: No Hx Cancer: No - Integumentary Hx Dermatological Disorder: No - Musculoskeletal/Rheumatological Hx Musculoskeletal Disorders: No Hx Falls: Yes - Gastrointestinal Hx Gastrointestinal Disorders: No - Genitourinary/Gynecological Hx Genitourinary Disorders: No Hx Sexually Transmitted Diseases: No - Psychiatric Hx Psychophysiologic Disorder: No Hx Depression: Yes Hx Substance Use: No - Past Surgical History Past Surgical History: No Previous - Anesthesia Hx Anesthesia: No Hx Anesthesia Reactions: No Hx Malignant Hyperthermia: No - Suicidal Assessment Feels Threatened In Home Enviroment: No Family/Social History - Physician Review Nursing Documentation Reviewed: Yes Family/Social History: Unknown Family HX Smoking Status: Former Smoker Hx Alcohol Use: Yes (socially) Hx Substance Use: No Substance used: CANNABIS Hx Substance Use Treatment: No Allergies/Home Meds Allergies/Adverse Reactions: Allergies No Known Allergies Allergy (Verified 07/17/18 03:04) Review of Systems - Physician Review All systems were reviewed & negative as marked: Yes - Review of Systems Constitutional: Normal. absent: Fevers Eyes: Normal ENT: Normal Respiratory: Normal. absent: SOB, Cough Cardiovascular: Normal. absent: Chest Pain Gastrointestinal: Normal. absent: Abdominal Pain, Diarrhea, Nausea, Vomiting Genitourinary Male: Urinary Output Changes (+urinary incontinence) Musculoskeletal: Normal. absent: Back Pain, Neck Pain Skin: Normal. absent: Rash Neurological: Seizure Endocrine: Normal Hemo/Lymphatic: Normal Psychiatric: Normal Physical Exam Vital Signs Reviewed: Yes Vital Signs Temp Pulse Resp BP Pulse Ox 07/17/18 03:01 98.2 F 102 H 18 113/64 98 Temperature: Afebrile Blood Pressure: Normal Pulse: Regular Respiratory Rate: Normal Appearance: Positive for: Well-Appearing, Non-Toxic, Comfortable Pain Distress: None Mental Status: Positive for: Alert and Oriented X 3 - Systems Exam Head: Present: Atraumatic, Normocephalic Pupils: Present: PERRL Extroacular Muscles: Present: EOMI Conjunctiva: Present: Normal Mouth: Present: Moist Mucous Membranes Neck: Present: Normal Range of Motion. No: Meningeal Signs, MIDLINE TENDERNESS , Paraspinal Tenderness Respiratory/Chest: Present: Clear to Auscultation, Good Air Exchange. No: Respiratory Distress, Accessory Muscle Use Cardiovascular: Present: Regular Rate and Rhythm, Normal S1, S2. No: Murmurs Abdomen: No: Tenderness, Distention, Peritoneal Signs Back: Present: Normal Inspection. No: CVA Tenderness, Midline Tenderness, Paraspinal Tenderness Upper Extremity: Present: Normal Inspection, Normal ROM, NORMAL PULSES. No: Cyanosis, Edema Lower Extremity: Present: Normal Inspection. No: Edema Neurological: Present: GCS=15, CN II-XII Intact, Speech Normal, Motor Func Grossly Intact, Normal Sensory Function, Normal Cerebellar Funct, Gait Normal Skin: Present: Warm, Dry, Normal Color. No: Rashes Psychiatric: Present: Alert, Oriented x 3, Normal Insight, Normal Concentration Medical Decision Making ED Course and Treatment: 07/17/18 03:58 Impression: 27 year old male brought in status post seizure Plan: -- CT Head w/o contrast -- EKG -- Labs, TSH, troponin, VBG, alcohol level -- UA -- IV fluids -- Toradol -- Reassess and disposition Prior Visits: Notes and results from previous visits were reviewed. Progress Notes: 07/17/18 04:16 Reviewed EKG, NSR at 78 bpm. No T wave abnormalities. No ST elevations. 07/17/18 04:18 CT Head: Brain: Unremarkable. No hemorrhage. No significant white matter disease. No edema. Ventricles: Unremarkable. No ventriculomegaly. Bones/joints: Unremarkable. No acute fracture. Soft tissues: Left lateral scalp laceration. Sinuses: Unremarkable as visualized. No acute sinusitis. Mastoid air cells: Unremarkable as visualized. No mastoid effusion. IMPRESSION: Left lateral scalp laceration. Dictated and Authenticated by: Abimael Watters MD 07/17/2018 4:16 AM Eastern Time ([place] & [place]) 07/17/18 05:51 Patient reassessed with no active bleeding noted to scalp. Labs reviewed with patient asymptomatic at this time. Shared decision making for patient to follow up with his neurologist outpatient. Return protocol given. He is stable for discharge. - Lab Interpretations Lab Results: 07/17/18 03:52 07/17/18 03:25 Lab Results 07/17/18 05:00: Urine Color Yellow, Urine Appearance Clear, Urine pH 7.0, Ur Specific [place] 1.015, Urine Protein Trace H, Urine Glucose (UA) Negative, Urine Ketones Negative, Urine Blood Negative, Urine Nitrate Negative, Urine Bilirubin Negative, Urine Urobilinogen 0.2, Ur Leukocyte Esterase Negative, Urine RBC 0 - 2, Urine WBC 0 - 2, Ur Epithelial Cells 0 - 2, Urine Bacteria Rare 07/17/18 03:52: pO2 36, VBG pH 7.33, VBG pCO2 40.0, VBG HCO3 21.1, VBG Total CO2 22.3, VBG O2 Sat (Calc) 67.9 H, VBG Base Excess -4.5 L, VBG Potassium 3.5 L , Glucose 90, Lactate 2.6 H, FiO2 21.0, Sodium 140.0, Chloride 112.0 H, Venous Blood Potassium 3.5 L 07/17/18 03:52: WBC 8.5 D, RBC 4.64, Hgb 14.1, Hct 39.9 L, MCV 86.0, MCH 30.4, MCHC 35.3, RDW 13.1, Plt Count 288, MPV 10.5, Gran % 63.2, Lymph % (Auto) 28.2, Robertson % (Auto) 4.9, Eos % (Auto) 3.3, Baso % (Auto) 0.4, Gran # 5.40, Lymph # ( Auto) 2.4, Robertson # (Auto) 0.4, Eos # (Auto) 0.3, Baso # (Auto) 0.03 07/17/18 03:25: Acetaminophen < 10.0 L 07/17/18 03:25: TSH 3rd Generation 7.33 H, Alcohol, Quantitative < 10 07/17/18 03:25: Sodium 142, Potassium 3.6, Chloride 110 H, Carbon Dioxide 18 L, Anion Gap 18, BUN 13, Creatinine 1.1, Est GFR ( Amer) > 60, Est GFR (Non- Af Amer) > 60, Random Glucose 81, Calcium 9.5, Total Bilirubin 0.1 L, AST 20, ALT 18, Alkaline Phosphatase 80, Troponin I < 0.01, Total Protein 7.3, Albumin 4.5, Globulin 2.8, Albumin/Globulin Ratio 1.6 I have reviewed the lab results: Yes - RAD Interpretation Radiology Orders: 07/17/18 03:25 HEAD W/O CONTRAST [CT] Stat Global Logistics Manager: Radiologist - EKG Interpretation Interpreted by ED Physician: Yes Type: 12 lead EKG - Medication Orders Current Medication Orders: Discontinued Medications Metoclopramide HCl 10 mg/ (Sodium Chloride) 52 mls @ 200 mls/hr IV STAT STA Stop: 07/17/18 04:08 Last Admin: 07/17/18 04:12 Dose: 200 mls/hr eMAR Start Stop Document 07/17/18 04:12 AD (Rec: 07/17/18 04:13 AD [id number]) Intravenous Solution Start Date 07/17/18 Start Time 04:13 Ketorolac Tromethamine (Toradol) 30 mg IVP STAT STA Stop: 07/17/18 03:53 Last Admin: 07/17/18 04:13 Dose: 30 mg MAR Pain Assessment Document 07/17/18 04:13 AD (Rec: 07/17/18 04:16 AD [id number]) Pain Reassessment Is this a pain reassessment? 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 I have reviewed the chart and agree that the record accurately reflects my personal performance of the history, physical exam, medical decision making, and the department course for this patient. I have also personally directed, reviewed, and agree with the discharge instructions and disposition. Disposition/Present on Arrival - Present on Arrival Any Indicators Present on Arrival: No History of DVT/PE: No History of Uncontrolled Diabetes: No Urinary Catheter: No History of Decub. Ulcer: No History Surgical Site Infection Following: None - Disposition Have Diagnosis and Disposition been Completed?: Yes Diagnosis: Seizure Disposition: HOME/ ROUTINE Disposition Time: 05:25 Patient Plan: Discharge Patient Problems: Current Active Problems Problem Status Onset Seizure Acute Condition: STABLE Discharge Instructions (ExitCare): Seizures, Adult (DC) Referrals: Barrington Guillaume MD [Primary Care Provider] - Follow up with primary Kolton Peres MD [Staff Provider] - Follow up with primary Forms: [employer] ([place])
[2018-07-17 04:09] LABS: ALB/GLOB RATIO 1.6 (1.1-1.8); ALBUMIN 4.5 g/dL (3.0-4.8); ALT/SGPT 18 U/L (7-56); AST/SGOT 20 U/L (17-59); BLOOD UREA NITROGEN 13 mg/dL (7-21); CALCIUM 9.5 mg/dL (8.4-10.5); GFR NON-AFRICAN AMERICAN > 60
[2018-07-17 04:20] LABS: TROPONIN I < 0.01 ng/mL
[2018-07-17 05:38] LABS: URINE BILIRUBIN NEGATIVE (NEGATIVE); URINE BLOOD NEGATIVE (NEGATIVE); URINE GLUCOSE (UA) NEGATIVE (NEGATIVE); URINE LEUKOCYTE ESTERASE NEGATIVE Leu/uL (NEGATIVE); URINE PROTEIN TRACE mg/dL (<30 mg/dL); URINE UROBILINOGEN 0.2 E.U./dL (<1 E.U./dL)
[2018-07-17 05:39] LABS: URINE APPEARANCE CLEAR (CLEAR)
[2018-07-17 05:40] LABS: URINE COLOR YELLOW (YELLOW)
[2018-07-17 05:49] LABS: URINE BACTERIA RARE (NEG); URINE EPITHELIAL CELLS 0 - 2 /hpf (0-5); URINE RBC 0 - 2 /hpf (0-2); URINE WBC 0 - 2 /hpf (0-6)
[2018-07-17 06:40] VITALS: BP 121/72; PULSE 85; O2SAT 100
--- NOTE | 2018-07-17 08:11 | CT ---
Date of service: 07/17/2018 PROCEDURE: CT HEAD WITHOUT CONTRAST. HISTORY: seizure COMPARISON: None available. TECHNIQUE: Axial computed tomography images were obtained through the head/brain without intravenous contrast. Radiation dose: Total exam DLP = 875 mGy-cm. This CT exam was performed using one or more of the following dose reduction techniques: Automated exposure control, adjustment of the mA and/or kV according to patient size, and/or use of iterative reconstruction technique. FINDINGS: HEMORRHAGE: No intracranial hemorrhage. BRAIN: No mass effect or edema. No atrophy or chronic microvascular ischemic changes. VENTRICLES: Unremarkable. No hydrocephalus. CALVARIUM: Unremarkable. PARANASAL SINUSES: Unremarkable as visualized. No significant inflammatory changes. MASTOID AIR CELLS: Unremarkable as visualized. No inflammatory changes. OTHER FINDINGS: The report concurs with the preliminary [facility] report IMPRESSION: No acute intracranial findings
--- NOTE | 2018-07-17 16:13 | CARD ---
APPROVED REPORT Date of service: 07/17/2018 EKG Measurement Heart [id number] <Conclusion> Normal sinus rhythm Normal ECG
== END 2018-07-17 05:30 | disposition home or self-care (01) ==
LOC: ED 02:51
DX: G40.909 Epilepsy, unspecified, not intractable, without status epilepticus (principal); Z87.891 Personal history of nicotine dependence
CPT/HCPCS: 70450; 80053; 81001; 82803; 84443; 84484; 85025; 93005; 96374; 99285; G0480; J1885; J2765

== ENCOUNTER 2018-07-22 15:51 | Emergency (ER) | payer BC, MEDICAID ==
[2018-07-22 16:26] VITALS: BMI 33.6
[2018-07-22 17:02] LABS: BASO # 0.03 K/mm3 (0.0-2.0); BASO % 0.3 % (0.0-3.0); EOS # 0.1 (0.0-0.7); EOS % 1.4 % (1.5-5.0); GRAN # 7.21 (1.4-6.5); GRAN % 74.1 % (50.0-68.0); HEMOGLOBIN 14.8 g/dL (14.0-18.0); LYMPH % 20.4 % (22.0-35.0); MEAN CELL VOLUME 85.4 fl (80.0-105.0); MEAN CORPUSCULAR HGB CONC 35.2 g/dl (31.0-37.0); MEAN PLATELET VOLUME 10.7 fl (7.0-11.0); MONO # 0.4 (0.1-0.6); MONO % 3.8 % (1.0-6.0); RBC 4.93 10^6/uL (3.5-6.1); RED CELL DISTRIBUTION WIDTH 12.9 % (11.5-14.5); WHITE BLOOD COUNT 9.7 10^3/ul (4.5-11.0)
[2018-07-22 17:06] LABS: ACETAMINOPHEN < 10.0 ug/ml (10.0-20.0); SALICYLATE < 1 mg/dL (2.0-20.0)
[2018-07-22 17:08] LABS: ALB/GLOB RATIO 1.7 (1.1-1.8); ALBUMIN 4.6 g/dL (3.0-4.8); ALT/SGPT 21 U/L (7-56); AST/SGOT 19 U/L (17-59); BLOOD UREA NITROGEN 9 mg/dL (7-21); CALCIUM 9.7 mg/dL (8.4-10.5); GFR NON-AFRICAN AMERICAN > 60
--- NOTE | 2018-07-22 17:34 | RAD ---
Date of service: 07/22/2018 HISTORY: PES COMPARISON: 11/27/2017 FINDINGS: LUNGS: No active pulmonary disease. PLEURA: No significant pleural effusion identified, no pneumothorax apparent. CARDIOVASCULAR: Normal. OSSEOUS STRUCTURES: No significant abnormalities. VISUALIZED UPPER ABDOMEN: Normal. OTHER FINDINGS: None. IMPRESSION: No active disease. No significant interval change compared to the prior examination(s).
[2018-07-22 18:08] VITALS: RESP 17; TEMP 97.6
[2018-07-22 18:53] LABS: PH,URINE 7.5 (4.7-8.0); URINE BILIRUBIN NEGATIVE (NEGATIVE); URINE BLOOD NEGATIVE (NEGATIVE); URINE GLUCOSE (UA) NEGATIVE (NEGATIVE); URINE LEUKOCYTE ESTERASE NEGATIVE Leu/uL (NEGATIVE); URINE PROTEIN TRACE mg/dL (<30 mg/dL); URINE UROBILINOGEN 0.2 E.U./dL (<1 E.U./dL)
[2018-07-22 18:54] LABS: URINE APPEARANCE CLEAR (CLEAR); URINE COLOR LIGHT YELLOW (YELLOW)
[2018-07-22 19:02] LABS: URINE BACTERIA NEG (NEG); URINE HYALINE CAST 0 - 2 /hpf; URINE RBC 0 - 2 /hpf (0-2); URINE WBC NEGATIVE /hpf (0-6)
[2018-07-22 19:40] LABS: BARBITURATES, UR NEGATIVE (NEGATIVE); BENZODIAZEPINES, UR NEGATIVE (NEGATIVE); OPIATES, UR NEGATIVE (NEGATIVE); PHENCYCLIDINE, UR NEGATIVE (NEGATIVE)
--- NOTE | 2018-07-22 20:01 | ED PDOC ---
Arrival/HPI - General Historian: Patient <Ranjana Arellano - Last Filed: 07/22/18 21:27> <Abimael Carlson - Last Filed: 07/23/18 05:48> - General Chief Complaint: Psychiatric Evaluation Time Seen by Provider: 07/22/18 16:39 - History of Present Illness Narrative History of Present Illness (Text): 07/22/18 19:58 27-year-old male with a history depression and seizures presents today with depression and suicidal ideation per patient she was speaking to a friend on the phone and she called 911. Patient states he was frustrated and just saying things and did not mean to say that he was going to harm himself. Patient denies suicidal or homicidal ideation at present time. Patient states he does have a history of depression but he thinks it's related to his seizure medications. He denies chest pain or shortness of breath. No nausea vomiting diarrhea constipation. No abdominal pain. No other complaints (Ranjana Arellano ) Past Medical History - Provider Review Nursing Documentation Reviewed: Yes - Travel History Have you recently traveled outside [place] w/in the past 3 mons?: No - Infectious Disease Hx of Infectious Diseases: None - Tetanus Immunization Tetanus Immunization: Unknown - Past Medical History Past Medical History: No Previous - Cardiac Hx Cardiac Disorders: No Hx Hypertension: No - Pulmonary Hx Tuberculosis: No - Neurological HX Cerebrovascular Accident: No Hx Seizures: Yes - HEENT Hx HEENT Disorder: No - Renal Hx Renal Disorder: No - Endocrine/Metabolic Hx Endocrine Disorders: No - Hematological/Oncological Hx Cancer: No - Integumentary Hx Dermatological Disorder: No - Musculoskeletal/Rheumatological Hx Musculoskeletal Disorders: No Hx Falls: Yes - Gastrointestinal Hx Gastrointestinal Disorders: No - Genitourinary/Gynecological Hx Sexually Transmitted Diseases: No - Psychiatric Hx Psychophysiologic Disorder: No Hx Depression: Yes Hx Substance Use: No - Past Surgical History Past Surgical History: No Previous - Anesthesia Hx Anesthesia: No Hx Anesthesia Reactions: No Hx Malignant Hyperthermia: No - Suicidal Assessment Feels Threatened In Home Enviroment: No <Ranjana Arellano - Last Filed: 07/22/18 21:27> Family/Social History - Physician Review Nursing Documentation Reviewed: Yes Family/Social History: Unknown Family HX Smoking Status: Former Smoker Hx Alcohol Use: Yes (socially) Hx Substance Use: No Substance used: CANNABIS Hx Substance Use Treatment: No <LynnvarinderRanjana T - Last Filed: 07/22/18 21:27> Allergies/Home Meds <EileenRanjana T - Last Filed: 07/22/18 21:27> <Abimael Carlson - Last Filed: 07/23/18 05:48> Allergies/Adverse Reactions: Allergies No Known Allergies Allergy (Verified 07/17/18 03:04) Review of Systems - Review of Systems Constitutional: absent: Fatigue, Fevers Respiratory: absent: SOB, Cough Cardiovascular: absent: Chest Pain, Palpitations Gastrointestinal: absent: Abdominal Pain, Nausea, Vomiting Genitourinary Male: absent: Dysuria Musculoskeletal: absent: Arthralgias, Back Pain, Neck Pain Skin: absent: Rash, Pruritis Neurological: absent: Headache, Dizziness Psychiatric: Depression, Suicidal Ideation <LynnvarinderRanjana T - Last Filed: 07/22/18 21:27> Physical Exam Vital Signs Reviewed: Yes Temperature: Afebrile Blood Pressure: Normal Pulse: Regular Respiratory Rate: Normal Appearance: Positive for: Well-Appearing, Non-Toxic, Comfortable Pain Distress: None Mental Status: Positive for: Alert and Oriented X 3 - Systems Exam Head: Present: Atraumatic Mouth: Present: Moist Mucous Membranes Neck: Present: Normal Range of Motion Respiratory/Chest: Present: Clear to Auscultation, Good Air Exchange. No: Respiratory Distress, Accessory Muscle Use Cardiovascular: Present: Regular Rate and Rhythm, Normal S1, S2. No: Murmurs Abdomen: No: Tenderness, Distention Upper Extremity: Present: Normal ROM Lower Extremity: Present: Normal ROM Neurological: Present: GCS=15, Speech Normal Skin: Present: Warm, Dry, Normal Color. No: Rashes Psychiatric: Present: Alert, Oriented x 3 <EileenRanjana T - Last Filed: 07/22/18 21:27> Vital Signs Temp Pulse Resp BP Pulse Ox 07/23/18 04:44 71 17 112/68 98 07/23/18 01:10 72 17 125/62 98 07/22/18 23:00 70 17 118/72 99 07/22/18 20:10 68 17 125/58 L 100 07/22/18 18:07 97.6 F 72 17 115/70 96 Medical Decision Making <Ranjana Arellano - Last Filed: 07/22/18 21:27> <Abimael Carlson - Last Filed: 07/23/18 05:48> ED Course and Treatment: 07/22/18 19:59 Patient is nontoxic well-appearing in no distress vital signs are stable. CBC WNL CMP WNL Tylenol WNL Salicylate WNL Alcohol level WNL Urine drug screen + marijuana UA; wnl cxr:FINDINGS: LUNGS: No active pulmonary disease. PLEURA: No significant pleural effusion identified, no pneumothorax apparent. CARDIOVASCULAR: Normal. OSSEOUS STRUCTURES: No significant abnormalities. VISUALIZED UPPER ABDOMEN: Normal. OTHER FINDINGS: None. IMPRESSION: No active disease. No significant interval change compared to the prior examination(s). ekg normal sinus rhythm at 88 bpm normal axis no ST elevations normal intervals pt is medically cleared for PES evaluation Patient was seen and evaluated by PES screener: jeison 07/22/18 20:01 Patient refused to sign voluntarily for psychiatric admission patient will be screened by [facility]. 07/22/18 21:27 Case signed out to Dr. Carlson pending [facility] psychiatric screening (Ranjana Arellano) - Lab Interpretations Lab Results: 07/22/18 16:00 07/22/18 16:00 Lab Results 07/22/18 18:42: Urine Opiates Screen Negative, Urine Methadone Screen Negative, Ur Barbiturates Screen Negative, Ur Phencyclidine Scrn Negative, Ur Amphetamines Screen Negative, U Benzodiazepines Scrn Negative, U Oth Cocaine Metabols Negative, U Cannabinoids Screen Positive H 07/22/18 18:42: Urine Color Light yellow, Urine Appearance Clear, Urine pH 7.5, Ur Specific [place] 1.015, Urine Protein Trace H, Urine Glucose (UA) Negative, Urine Ketones Negative, Urine Blood Negative, Urine Nitrate Negative, Urine Bilirubin Negative, Urine Urobilinogen 0.2, Ur Leukocyte Esterase Negative, Urine RBC 0 - 2, Urine WBC Negative, Ur Epithelial Cells None, Urine Bacteria Neg, Hyaline Casts 0 - 2 07/22/18 16:00: Alcohol, Quantitative < 10 07/22/18 16:00: Salicylates < 1 L, Acetaminophen < 10.0 L 07/22/18 16:00: Sodium 145, Potassium 3.7, Chloride 112 H, Carbon Dioxide 20 L, Anion Gap 16, BUN 9, Creatinine 1.1, Est GFR ( Amer) > 60, Est GFR (Non- Af Amer) > 60, Random Glucose 103, Calcium 9.7, Total Bilirubin 0.4, AST 19, ALT 21, Alkaline Phosphatase 79, Total Protein 7.3, Albumin 4.6, Globulin 2.7, Albumin/Globulin Ratio 1.7 07/22/18 16:00: WBC 9.7, RBC 4.93, Hgb 14.8, Hct 42.1, MCV 85.4, MCH 30.0, MCHC 35.2, RDW 12.9, Plt Count 318, MPV 10.7, Gran % 74.1 H, Lymph % (Auto) 20.4 L, [place] % (Auto) 3.8, Eos % (Auto) 1.4 L, Baso % (Auto) 0.3, Gran # 7.21 H, Lymph # (Auto) 2.0, [place] # (Auto) 0.4, Eos # (Auto) 0.1, Baso # (Auto) 0.03 - RAD Interpretation Radiology Orders: 07/22/18 16:40 CHEST PORTABLE [RAD] Stat Disposition/Present on Arrival - Present on Arrival Any Indicators Present on Arrival: No History of DVT/PE: No History of Uncontrolled Diabetes: No Urinary Catheter: No History of Decub. Ulcer: No History Surgical Site Infection Following: None - Disposition Have Diagnosis and Disposition been Completed?: Yes <Ranjana Arellano - Last Filed: 07/22/18 21:27> - Present on Arrival Any Indicators Present on Arrival: No - Disposition Have Diagnosis and Disposition been Completed?: Yes Disposition Time: 05:30 <Abimael Carlson - Last Filed: 07/23/18 05:48> - Disposition Diagnosis: Depression Disposition: HOME/ ROUTINE Condition: GOOD Referrals: Barrington Guillaume MD [Primary Care Provider] - Follow up with primary Forms: [employer] ([place])
--- NOTE | 2018-07-22 20:25 | CARD ---
APPROVED REPORT Date of service: 07/22/2018 EKG Measurement Heart [id number] <Conclusion> Normal sinus rhythm Nonspecific T wave abnormality Abnormal ECG
[2018-07-23 02:11] VITALS: O2SAT 98
[2018-07-23 04:45] VITALS: BP 112/68; PULSE 71
== END 2018-07-23 06:05 | disposition home or self-care (01) ==
LOC: ED 15:51
DX: F32.9 Major depressive disorder, single episode, unspecified (principal); Z87.891 Personal history of nicotine dependence
CPT/HCPCS: 71045; 80053; 81001; 85025; 90791; 93005; 99285; G0480